=== PATIENT | male | born 1965 | race Caucasian/White ===

== ENCOUNTER 2017-04-16 10:07 | Emergency (ER) | payer OTHER ==
[~2017-04-16] VITALS: Ht 177.8 cm; Wt 83.5 kg
[2017-04-16 10:10] VITALS: Ht 177.8 cm; Wt 83.5 kg
[2017-04-16] MEDS ORDERED: ACETAMINOPHEN 500 MG TAB PO STA (10:34)
[2017-04-16] MEDS ORDERED: ACET325T33 PO (10:39)
[2017-04-16] MEDS ORDERED: PROM5SYR2 PO (10:39)
--- NOTE | 2017-04-16 10:47 | ERD ---
ER Documentation Chief Complaint Date/Time DATE: 04/16/17 TIME: 10:45 Chief Complaint sorethroat x2 days, sweating a lot last night, on zpak since [id number] HPI 51-year-old male presents with sore throat, lymphadenopathy and chills with sweating for the past 3 days. Patient states that he was seen by his primary care physician and was diagnosed with infectious pharyngitis and was given azithromycin and ibuprofen. Patient states that his sore throat has improved. Patient states that about every couple hours he started sweating a lot with chills. ROS All systems reviewed and are negative except as per history of present illness. Medications Home Meds Active Scripts Promethazine HCl/Codeine (Prometh-Codein 6.25-10 mg/5 ml) 5 Ml Syrup, 5 ML PO Q6 , #60 Prov:DEVEN LEI PA-C 04/16/17 Acetaminophen* (Tylenol*) 325 Mg Tablet, 2 TAB PO Q4 Y for PAIN AND OR ELEVATED TEMP, #30 TAB Prov:DEVEN LEI PA-C 04/16/17 Allergies Allergies: Coded Allergies: Penicillins (Verified Allergy, Unknown, RASH, 04/16/17) PMhx/Soc Medical and Surgical Hx: pt denies Medical Hx, pt denies Surgical Hx Hx Alcohol Use: No Hx Substance Use: No Hx Tobacco Use: No Smoking Status: Never smoker Physical Exam Vitals Vital Signs Date Time Temp Pulse Resp B/P Pulse Ox O2 Delivery O2 Flow Rate FiO2 04/16/17 10:10 97.9 91 18 101/66 98 Physical Exam Const: Well-developed well-nourished Head: Atraumatic Eyes: Normal Conjunctiva ENT: Oropharynx is erythematous Neck: Right cervical lymphadenopathy Resp: Clear to auscultation bilaterally Cardio: Regular rate and rhythm, no murmurs Abd: Soft, non tender, non distended. Normal bowel sounds Skin: No petechiae or rashes Back: No midline or flank tenderness Ext: No cyanosis, or edema Neur: Awake and alert Psych: Normal Mood and Affect Results 24 hrs Current Medications Medications (Trade) Dose Ordered Sig/Power Route PRN Reason Start Time Stop Time Status Last Admin Dose Admin Acetaminophen (Tylenol Tab) 1,000 mg ONCE STAT PO 04/16/17 10:34 04/16/17 10:35 DC 04/16/17 10:44 Procedures/MDM 51-year-old male presents with pharyngitis, viral versus strep. Patient is concerned was sweating with chills, this is likely due to the infection. In the ED patient was given Tylenol. He stable to be discharged home to follow-up with primary care physician. Prescription for Tylenol and promethazine cough syrup was provided. Discussed return to the ER for any worsening signs or symptoms. He understands and agrees with this plan Departure Diagnosis: Primary Impression: Pharyngitis Condition: Stable Patient Instructions: Pharyngitis, Strep (Presumed), Pharyngitis, Viral Additional Instructions: FOLLOW UP WITH YOUR PRIMARY CARE PHYSICIAN TOMORROW.Return to this facility if you are not improving as expected. Take all medicines as directed. You have been given a medicine which may cause drowsiness.DO NOT DRIVE OR OPERATE DANGEROUS MACHINERY while taking this medicine! DEVEN LEI PA-C Apr 16, 2017 10:47
== END 2017-04-16 11:07 | disposition home or self-care (01) ==
LOC: FTE 10:07
DX: J02.9 Acute pharyngitis, unspecified (principal)
CPT/HCPCS: Z7502; Z7610; 99283